=== PATIENT | female | born 1960 | race Caucasian/White ===

== ENCOUNTER 2022-08-29 14:09 | Emergency (ER) | payer OTHER, SELFPAY ==
--- NOTE | ~2022-08-29 | XR_ITS ---
EXAMINATION: XR chest 2V DATE: 08/29/2022 14:40 INDICATION: Cough. TECHNIQUE: Frontal and lateral views of the chest were obtained. COMPARISON: Chest single view 11/20/2020 FINDINGS: The chest demonstrates clear lungs without pneumonia, pleural effusion, or pneumothorax. Th e heart size is normal. IMPRESSION: 1. No acute cardiopulmonary disease. Reviewed, dictated and finalized at location A. [facility] PSYCHOLOGIST
[2022-08-29 14:20] VITALS: BP 123/83; PULSE 94; RESP 16; TEMP 36.7; O2SAT 98
--- NOTE | 2022-08-29 14:20 | ED.GENADULT ---
HPI - General Adult General Chief complaint: Upper Respiratory Infection Stated complaint: COUGH Time Seen by Provider: 08/29/22 14:16 Source: patient Mode of arrival: ambulatory Limitations: no limitations History of Present Illness HPI narrative: 61-year-old female patient presents to the [facility] with complaints of a cough. Patient states she got sick with a virus couple of days before Brad. Patient states she was given Augmentin, and albuterol inhaler, Tessalon Perles and steroid at the time and states she did get to feeling better. Patient states about a week later she started having symptoms of sneezing, runny nose, congestion and the cough continued. Patient states that she has received another dose of steroids, albuterol inhaler and Tessalon Perles from her doctor on 08/24 and has continued to take those but states she continues to cough. Denies any fevers, body aches or chills. Denies any chest pain or shortness of breath. Denies any nausea, vomiting or diarrhea. Patient states that the cough does come and go the cough is worse at night when she lays down. Patient is a former smoker that quit about 5 years ago but denies any history of COPD or emphysema. Related Data Home Medications Medication Instructions Recorded Confirmed No Home Medications 08/29/22 08/29/22 Allergies Allergy/AdvReac Type Severity Reaction Status Date / Time No Known Allergies Allergy Verified 08/29/22 14:19 Review of Systems Review of Systems: CONSTITUTIONAL: Denies fever, chills, or sweats. EYES: Denies visual changes, redness, or discharge. ENT: Denies rhinorrhea, congestion, sore throat, or otalgia. CARDIOVASCULAR: Denies chest pain, palpitations, or edema. RESPIRATORY: Denies cough or dyspnea. GASTROINTESTINAL: Denies abdominal pain, nausea, vomiting, or diarrhea. GENITOURINARY: Denies dysuria or hematuria. SKIN: Denies rash or itching. MUSCULOSKELETAL: Denies back pain, joint pain, or myalgia. NEUROLOGIC: Denies headache, numbness, or weakness. PSYCHIATRIC: Denies anxiety or depression. [facility] Surgical History Surgical History (Updated 08/29/22 @ 14:36 by DEVANTE Long) H/O: hysterectomy Social History Social History (Updated 08/29/22 @ 14:35 by DEVANTE Long) Smoking status: Former smoker Comments At the time of my signature I agree with nursing past medical history, surgical, social, and family history. There is no relevant family history pertinent to the presenting complaint. Exam Narrative: GENERAL: Well-appearing, well-nourished, and in no acute distress. HEAD: Normocephalic, atraumatic. EYES: PERRLA and EOMI. ENT: Nares clear, no rhinorrhea or epistaxis. Mucous membranes moist. Posterior pharynx with no erythema, tonsillar exudates or lesions present. Bilateral TMs are clear no erythema or foreign bodies the canal NECK: Supple. No lymphadenopathy CHEST: Clear to auscultation. No respiratory Distress. No tripoding noted. HEART: Regular rate and rhythm. No murmur heard. Normal peripheral pulses. ABDOMEN: Soft, nontender, nondistended, normal active bowel sounds. EXTREMITIES: Normal range of motion. No edema. SKIN: Warm, dry, no rash. NEURO: No focal deficits. Alert and oriented x3. Course Course Level of Care: Express Care Visit Reevaluation(s) Reevaluation #1: re-evaluated patient notified her that the x-ray was negative for any acute issues. Discussed with patient that I do believe she most likely has bronchitis and that she will need to continue taking the medications that her doctor prescribed her and finish the steroid as well as continue taking the inhaler and Tessalon Perles for her symptoms. Discussed with patient she continues to have issues she will need to follow-up with her primary doctor. Patient verbalized understanding denies any other questions or concerns at this time. Date: 08/29/22 Time: 14:51 Vital Signs Vital signs: Vital Signs Temperature 36.7 C
== END 2022-08-29 14:55 | disposition home or self-care (01) ==
PROVIDERS: Emergency Provider Nurse Practitioner Family
DX: J20.9 Acute bronchitis, unspecified (principal); Z87.891 Personal history of nicotine dependence
CPT/HCPCS: 71046; 99213; G0463

== ENCOUNTER 2023-11-09 11:53 | Emergency (ER) | payer OTHER, SELFPAY ==
[2023-11-09 12:01] VITALS: BP 122/78; PULSE 73; RESP 16; TEMP 37; O2SAT 97
--- NOTE | 2023-11-09 12:34 | ED.URI ---
HPI - URI/Sore Throat General Chief Complaint: Upper Respiratory Infection Stated Complaint: Upper Respiratory Symptoms Time Seen by Provider: 11/09/23 12:20 Source: patient, RN notes reviewed and old records reviewed Mode of arrival: ambulatory Limitations: no limitations History of Present Illness HPI Narrative: 63 year old female who presents to [facility] with reported complaints of illness for the past 7 days with complaints of sore throat , cough with nasal congestion, hoarseness with loss of voice. Patient reports that cough is deep and productive, keeping her awake at night. Patient reports that she has been taking Mucinex for her symptoms, has gargled with salt water, has taken some Ibuprofen. MD elicited complaint: cough, sore throat, rhinorrhea and nasal congestion Pertinent past history: other (bronchitis) Onset (ago): week(s) (1) Pain scale (0-10): 3 Description of mucous: clear Able to tolerate fluids by mouth: Yes Treatments prior to arrival: ibuprofen and other (Mucinex salt water gargles) Related Data Allergies Allergy/AdvReac Type Severity Reaction Status Date / Time No Known Allergies Allergy Verified 11/09/23 12:23 Review of Systems Review of Systems: CONSTITUTIONAL: Reports malaise, chills, sweats, felt feverish. EYES: Denies visual changes, redness, or discharge. ENT: Reports rhinorrhea, congestion, sinus pain, no otalgia and positive for sore throat. CARDIOVASCULAR: Denies chest pain, palpitations, or edema. RESPIRATORY: Reports cough.? Denies dyspnea. GASTROINTESTINAL: Denies abdominal pain, nausea, vomiting, diarrhea SKIN: Denies rash or itching. MUSCULOSKELETAL: mild myalgia. NEUROLOGIC: frontal headache.intermittent All systems reviewed & are unremarkable except as noted in HPI and below PMFSH Past Medical History Medical History (Updated 11/10/23 @ 18:28 by Carlene Arndt NP) Bronchitis Pneumonia Surgical History Surgical History H/O breast biopsy H/O: hysterectomy Social History Social History (Updated 11/10/23 @ 18:23 by Carlene Arndt NP) Smoking status: Former smoker Alcohol use details: no alcohol use Substance use: never Gender identity (if verbalized by the patient): Female Comments At time of signature, agree with nursing past medical, surgical, social and family history. There is no relevant family history pertinent to the presenting complaint Exam Narrative: GENERAL:Ill appearing, well-nourished, and in no acute distress. HEAD: Normocephalic EYES: PERRLA, conjunctivae clear ENT: Nares clear, turbinates edematous and erythematous, clear discharge. Mucous membranes moist. TM pearly kidd with dull light reflex bilaterally; no tragal tenderness. Oropharynx erythematous without lesions. Tonsils red not enlarged and without exudate, no drooling, positive for hoarseness, no trismus, uvula midline.post nasal drainage NECK: Supple. No lymphadenopathy CHEST: Coarse to auscultation, breath sounds equal. No wheezing, rhonchi, rales, or stridor. No respiratory distress, speaks in full sentences.harsh cough SAO2 97% on room air HEART: Regular rate and rhythm. No murmur heard. SKIN: Warm, dry, no rash. NEURO: Alert and oriented x3. PSYCH: Normal mood and affect Course Course Emergency Course: Patient is aware of diagnosis, understands and agrees to treatment plan.? Anticipatory guidance given.? Patient agrees to follow-up as directed and is aware of reasons to seek care at the emergency department. Portions of this record may have been created with voice recognition software Level of Care: Express Care Visit Vital Signs Vital signs: Vital Signs Temperature 37.0 C 11/09/23 12:01 Pulse Rate 73 11/09/23 12:01 Respiratory Rate 16 11/09/23 12:01 Blood Pressure 122/78 11/09/23 12:01 Pulse Oximetry 97 11/09/23 12:01 Temperature 37.0 C 11/08
== END 2023-11-09 13:00 | disposition home or self-care (01) ==
PROVIDERS: Emergency Provider Registered Nurse
DX: J40 Bronchitis, not specified as acute or chronic (principal); Z87.891 Personal history of nicotine dependence
CPT/HCPCS: 87081; 87880; 99213; G0463

== ENCOUNTER 2024-03-14 11:00 | Outpatient (CLI) | payer OTHER, SELFPAY ==
[2024-03-14 11:24] LABS: Basophils Percent Auto 0.6 % (0.2-1.2); Eosinophils Absolute Auto 0.1 K/mm3 (0-0.3); Eosinophils Percent Auto 2.2 % (0-4.4); Hematocrit 38.9 % (37.0-47.0); Hemoglobin 12.9 g/dL (12.0-15.0); Immature Granulocyte Absolute 0.04 K/mm3 (0.00-0.031); Immature Granulocyte Percent A 0.6 % (0-0.5); Lymphocytes Absolute Auto 1.41 K/mm3 (0.9-3.2); Lymphocytes Percent Auto 22.1 % (18.3-44.2); Mean Corpuscular HGB Conc 33.2 g/dl (32-36); Mean Corpuscular Hemoglobin 31.1 pg (26-34); Mean Corpuscular Volume 93.7 fl (80-100); Mean Platelet Volume 9.3 fl (7.4-10.4); Monocytes Absolute Auto 0.5 K/mm3 (0.1-0.6); Monocytes Percent Auto 7.2 % (2.6-8.5); Neutrophils Absolute Auto 4.3 K/mm3 (1.3-6.7); Neutrophils Percent Auto 67.3 % (45.5-73.1); Platelet Count Result 278 k/mm3 (150-375); Red Blood Count 4.15 M/mm3 (4.2-5.4); Red Cell Distribution Width 13.7 % (11.5-14.5); White Blood Count 6.4 K/mm3 (4.5-10.0)
[2024-03-14 11:27] LABS: Add Urine Microscopic? YES; Appearance Urine Clear (Clear); Bacteria Urine Rare /hpf; Bilirubin Urine Negative (Negative); Blood Urine Negative (Negative); Color Urine Yellow (Yellow); Glucose Urine UA Negative (Negative); Ketones Urine Negative (Negative); Leukocyte Esterase Ur 2+ LEU/UL (Negative); Nitrate Urine Negative (Negative); Non Pathogenic Casts 0-2; Protein Urine Negative (Negative); RBC Urine 0-2 /hpf (0-2); Specific Grav Ur 1.004 (1.001-1.035); Squamous Epithelial Cell Urine None Seen /hpf (Few); Urobilinogen Urine 0.2 mg/dL (<2.0); WBC Urine 21-50 /hpf (0-3); pH Urine 6.5 (5.0-9.0)
[2024-03-14 11:34] LABS: Alanine Aminotransferase 28 U/L (6-35); Albumin Level 4.5 g/dL (3.5-5.1); Alkaline Phosphatase 130 U/L (38-126); Anion Gap 10 mmol/L (4-12); Aspartate Amino Transferase 29 U/L (14-36); Bilirubin,Total 0.4 mg/dL (0.2-1.3); Blood Urea Nitrogen 10 mg/dL (7-17); Carbon Dioxide 26 mmol/L (22-30); Chloride 101 mmol/L (98-107); Cholesterol 203 mg/dL (0-200); Estimated Glomerular Filt Rate > 60; Glucose 107 mg/dL (65-110); HDL Direct 72 mg/dL; Potassium 3.8 mmol/L (3.4-5.0); Sodium 137 mmol/L (137-145); Triglycerides 109 mg/dL (<150)
[2024-03-14 11:45] LABS: LDL Cholesterol Direct 89 mg/dL
[2024-03-14 11:54] LABS: Vitamin D 25 Hydroxy 27.4 ng/mL
[2024-03-14 12:42] LABS: Folic Acid > 20.0 ng/mL (2.76->20); Vitamin B12 > 1000.0 pg/mL (239-931)
== END 2024-03-14 11:01 | disposition home or self-care (01) ==
LOC: ANHLAB 11:05
PROVIDERS: Visit Provider Nurse Practitioner
DX: Z00.00 Encounter for general adult medical examination without abnormal findings (principal); Z13.21 Encounter for screening for nutritional disorder; R53.81 Other malaise; E55.9 Vitamin D deficiency, unspecified
CPT/HCPCS: 36415; 80053; 80061; 81001; 82306; 82607; 82746; 84443; 85025; 87086; 87088

== ENCOUNTER 2024-04-05 15:42 | Outpatient (CLI) | payer OTHER, SELFPAY ==
--- NOTE | ~2024-04-05 | CT_ITS ---
EXAMINATION:CT lung screening DATE: 04/05/2024 16:08 INDICATION: Personal history of nicotine dependence. 60 pack year history. TECHNIQUE: Computed tomography (CT) of the chest was performed without intravenous contrast. Automate d exposure control and iterative reconstruction technique were employed. The dose-length product (DLP ) was 124.69 mGy-cm. COMPARISON: None. FINDINGS: There is mild emphysema. There is mild scarring at the lung apices. There is a 2 mm nodule in left upper lobe. There is mild atelectasis bilaterally. No pleural effusion. The heart size is nor mal. There are coronary artery calcifications. No pericardial effusion. There is moderate thoracic sp ondylosis. IMPRESSION: 1. Lung-RADS category 2: Benign appearance or behavior. Continue annual screening with noncontrast lo w-dose chest CT in 12 months. Reviewed, dictated and finalized at location A. IMPRESSION: 1. Lung-RADS category 2: Benign appearance or behavior. Continue annual screeni ng with noncontrast low-dose chest CT in 12 months.
== END 2024-04-05 15:43 | disposition home or self-care (01) ==
PROVIDERS: Visit Provider Nurse Practitioner
DX: Z12.2 Encounter for screening for malignant neoplasm of respiratory organs (principal); F17.210 Nicotine dependence, cigarettes, uncomplicated
CPT/HCPCS: 71271

== ENCOUNTER 2024-04-08 11:22 | Outpatient (CLI) | payer OTHER, SELFPAY ==
--- NOTE | ~2024-04-08 | MM_ITS ---
EXAMINATION: MM screening lisa BI w tabitha HISTORY: Screening mammogram, family history of breast cancer in her sister. TECHNIQUE: Craniocaudal and mediolateral oblique 3-D tomosynthesis images were obtained and synthetic 2-D images were generated. CAD analysis was submitted and interpreted. COMPARISON: 12/11/2006 BREAST PARENCHYMAL COMPOSITION:Not Dense. There are scattered areas of fibroglandular density. FINDINGS: Stable small mass at the upper, outer right breast. No suspicious mass, calcification, or a rchitectural distortion are identified in either breast to suggest malignancy. There has been no susp icious interval change. IMPRESSION: No mammographic evidence of malignancy. Recommend routine screening mammography in one year. BI-RADS Category 2: Benign finding(s). Reviewed, dictated and finalized at location .
== END 2024-04-08 11:23 | disposition home or self-care (01) ==
LOC: ANHIMG 11:24
PROVIDERS: PCP Nurse Practitioner; Visit Provider Nurse Practitioner
DX: Z12.31 Encounter for screening mammogram for malignant neoplasm of breast (principal)
CPT/HCPCS: 77063; 77067

== ENCOUNTER 2024-07-24 01:12 | Day surgery (SDC) | payer OTHER, SELFPAY ==
[2024-07-13 08:57] VITALS: BMI 29.2
[2024-07-24 09:21] VITALS: BP 142/84; PULSE 104; RESP 16; TEMP 36.3; O2SAT 98
[2024-07-24] MEDS: LACTATED RINGERS 1,000 ML 150 ML IV CONT (09:29)
--- NOTE | 2024-07-24 09:50 | P.PNAN_ITS ---
Anes - Initial Pre Proc Eval Procedure: Operation Date: 07/24/24 10:30 Proposed Procedures p Screening Colonoscopy - Nihcolas Lomax MD Date/Time: 07/24/24 09:50 Surgeon: Nicholas Lomax MD Pre Op Diagnosis: Neoplasm screening Patient Data Age: 63 Gender: F Height: 1.6 m Weight: 71.2 kg Last Vital Signs Temp 97.4 F L 07/24/24 09:21 Pulse 104 H 07/24/24 09:21 Resp 16 07/24/24 09:21 BP 142/84 H 07/24/24 09:21 Pulse Ox 98 07/24/24 09:21 O2 Del Method Room Air 07/24/24 09:21 Allergies Allergy/AdvReac Type Severity Reaction Status Date / Time No Known Allergies Allergy Verified 07/24/24 09:18 Home Medications ?Medication ?Instructions ?Recorded ?Confirmed ?Type azithromycin 250 mg tablet See Rx Instructions PO .COMPLEX #6 11/09/23 07/13/24 Rx tabs codeine 10 mg-guaifenesin 100 mg/5 10 ml PO Q6H PRN cough #200 mL 11/09/23 07/13/24 Rx mL oral liquid prednisone 20 mg tablet 20 mg PO BID #10 tabs 11/09/23 07/13/24 Rx Patient hx anesthesia problems: none Family hx anesthesia problems: none Results Review: All pre-operative results and documents have been reviewed as part of the pre- operative evaluation. PMFSH Past Medical History Medical History Pneumonia Bronchitis Surgical History Surgical History H/O breast biopsy H/O: hysterectomy Social History Social History Smoking status: Former smoker Tobacco type: cigarettes Alcohol intake: current Drinks per week: 2 Alcohol use details: no alcohol use Substance use: never Substance use type: does not use Living arrangements: alone Gender identity (if verbalized by the patient): Female Spiritual care concerns: No Anes - Eval Final PreProcedure Day of Procedure 07/24/24 09:50 Patient weight: normal Heart: regular rate and rhythm Lungs: clear to auscultation Airway: Mallampati scale and special considerations (Missing many teeth in the posterior aspect/upper and lower. ) Neurological: alert and oriented Last oral intake: >/= 8 hours ASA classification: II Emergent: no Anesthetic plan: proceed Anesthesia type and monitoring: general GIVS Results Review: All pre-operative results and documents have been reviewed as part of the pre- operative evaluation. Ex smoker, quit 2017. Informed Consent: The patient's anesthetic plan and its attendant risks and benefits were discussed with the patient/family/POA. Questions were solicited and answers provided to the satisfaction of the patient/family/POA.
--- NOTE | 2024-07-24 10:15 | PM.HPGS ---
History of Present Illness History of Present Illness Consent: Risks, benefits, and alternatives have been discussed and questions answered. Patient agrees to proceed with procedure. Chief complaint: Neoplasm screening Narrative: Domi Canseco is a 63 year old female here for screening colonoscopy, last one about 20 years ago, also h/o loose stools using imodium at least once a week. Review of Systems Review of Systems: All systems reviewed & are unremarkable except as noted in HPI and below PMFSH Past Medical History Medical History (Updated 07/24/24 @ 10:17 by Nicholas Lomax MD) Loose stools Colon cancer screening Pneumonia Bronchitis Surgical History Surgical History H/O breast biopsy H/O: hysterectomy Social History Social History Smoking status: Former smoker Tobacco type: cigarettes Alcohol intake: current Drinks per week: 2 Alcohol use details: no alcohol use Substance use: never Substance use type: does not use Living arrangements: alone Gender identity (if verbalized by the patient): Female Spiritual care concerns: No Meds Home Medications and Allergies Home Medications ?Medication ?Instructions ?Recorded ?Confirmed ?Type azithromycin 250 mg tablet See Rx Instructions PO .COMPLEX #6 11/09/23 07/13/24 Rx tabs codeine 10 mg-guaifenesin 100 mg/5 10 ml PO Q6H PRN cough #200 mL 11/09/23 07/13/24 Rx mL oral liquid prednisone 20 mg tablet 20 mg PO BID #10 tabs 11/09/23 07/13/24 Rx Allergies Allergy/AdvReac Type Severity Reaction Status Date / Time No Known Allergies Allergy Verified 07/24/24 09:18 Vital Signs Vital Signs - 24 hr 07/24/24 09:21 Temperature 97.4 F L Pulse Rate 104 H Respiratory Rate 16 Blood Pressure 142/84 H Pulse Oximetry 98 Oxygen Delivery Room Air Exam Const: General: comfortable and no acute distress HENMT: Face/Nose/Sinus: Normal nares present Eyes: General: appearance normal, both eyes and all related structures Neck: Neck: no JVD Resp: Auscultation: clear to auscultation bilaterally Cardio: Rate: regular rate Rhythm: regular rhythm GI: Inspection: non-distended GI Palp: Yes Soft to palpation Skin: General skin exam: normal color Neuro: General: gait normal Speech: normal speech Extrem: General: normal to inspection Psych: Mental Status: mental status grossly normal Assessment and Plan Assessment and plan (1) Colon cancer screening: Code(s): Z12.11 - Encounter for screening for malignant neoplasm of colon Status: Acute Assessment and Plan: colonoscopy (2) Loose stools: Code(s): R19.5 - Other fecal abnormalities Status: Acute
[2024-07-24 10:35] VITALS: BP 101/64; PULSE 90; RESP 20; O2SAT 99
[2024-07-24 10:45] VITALS: BP 97/76; PULSE 86; RESP 20; O2SAT 96
[2024-07-24 10:55] VITALS: BP 111/66; PULSE 76; RESP 14; O2SAT 97
== END 2024-07-24 11:08 | disposition home or self-care (01) ==
PROVIDERS: PCP Nurse Practitioner; Visit Provider Internal Medicine Gastroenterology
PROC: 0DJD8ZZ Inspection of Lower Intestinal Tract, Via Natural or Artificial Opening Endoscopic (ICD-10-PCS; CPT 45378; principal; 2024-07-24 10:30)
DX: Z12.11 Encounter for screening for malignant neoplasm of colon (principal); R19.7 Diarrhea, unspecified; K57.30 Diverticulosis of large intestine without perforation or abscess without bleeding; Z87.891 Personal history of nicotine dependence
CPT/HCPCS: 45380; 88305; J2003; J2704; J7120